=== PATIENT | female | born 1995 | race Caucasian/White ===

== ENCOUNTER 2019-07-19 08:41 | Outpatient (CLI) | payer OTHER | END 2019-07-19 23:59 | disposition home or self-care (01) | LOC: RAD 08:41 → EEVIPCON 11:00 → RAD 23:59 | PROVIDERS: ATTEND Family Medicine | DX: G40.909 Epilepsy, unspecified, not intractable, without status epilepticus (principal) | CPT/HCPCS: 95816 ==

== ENCOUNTER 2023-08-30 10:28 | Emergency (ER) | payer MEDICAID, OTHER ==
[~2023-08-30] VITALS: Ht 182.9 cm; Wt 98.1 kg
[2023-08-30 10:43] VITALS: TEMP 98.6
[2023-08-30] MEDS ORDERED: levetiracetam inj 1,000 MG in normal saline 100ml IV soln 90 ML IV STA (10:49)
[2023-08-30] MEDS: levetiracetam inj 1,000 MG in normal saline 100ml IV soln 100 ML IV STA (11:31)
[2023-08-30] MEDS: normal saline 1000ML IV soln IVB ONE (11:31)
[2023-08-30] MEDS ORDERED: KEP500T PO (13:08)
[2023-08-30 13:29] VITALS: BP 130/78; PULSE 91; RESP 18; O2SAT 95
== END 2023-08-30 13:26 | disposition home or self-care (01) ==
LOC: ER 10:29
DX: G40.909 Epilepsy, unspecified, not intractable, without status epilepticus (principal); Z79.899 Other long term (current) drug therapy
CPT/HCPCS: 96374; 99284; J1953; J3490; J7030; 96365